=== PATIENT | male | born 1990 | race Caucasian/White ===

== ENCOUNTER 2018-08-28 10:38 | Inpatient (IN) | payer BC, OTHER ==
[~2018-08-28] VITALS: Ht 162.6 cm; Wt 72.2 kg
[2018-08-28] MEDS ORDERED: MORPHINE SULFATE 4 MG/ML, 1ML ONE (10:59)
[2018-08-28] MEDS ORDERED: MORPHINE SULFATE 4 MG/ML, 1ML IVPush PRN (11:00)
[2018-08-28] MEDS ORDERED: SODIUM CHLORIDE FLUSH 10ML SYR IVF ONE (11:00)
[2018-08-28 11:18] LABS: ALANINE AMINOTRANSFERASE 186 U/L (12-78); ANION GAP 14 mmol/L (5-15); CALCIUM 9.1 mg/dL (8.5-10.1); CHLORIDE 100 mmol/L (98-107); CREATININE 0.93 mg/dL (0.7-1.3)
[2018-08-28 11:19] LABS: SALICYLATE LEVEL < 1.7 mg/dL (2.8-20.0)
[2018-08-28 11:20] LABS: ALKALINE PHOSPHATASE 82 U/L (45-117); BILIRUBIN,TOTAL 1.8 mg/dL (0.2-1.0)
[2018-08-28] MEDS ORDERED: PLEASE ENTER ALLERGIES MC SCH (11:30)
[2018-08-28 11:39] LABS: BASOPHILS # (AUTO) 0.03 x10^3/uL (0-0.1); BASOPHILS % (AUTO) 0 % (0-1); EOSINOPHILS # (AUTO) 0.07 x10^3/uL (0-0.4); EOSINOPHILS % (AUTO) 1 % (1-7); LYMPHOCYTES # (AUTO) 0.65 x10^3/uL (1-3.4); LYMPHOCYTES % (AUTO) 8 % (22-44); MD NO; MEAN CORPUSCULAR HEMOGLOBIN 32.9 pg (27.5-34.5); MEAN CORPUSCULAR HGB CONC 35.1 g/dL (33.2-36.2); MEAN CORPUSCULAR VOLUME 93.7 fL (81-97); MEAN PLATELET VOLUME 7.8 fL (7.4-10.4); MONOCYTES # (AUTO) 0.66 x10^3/uL (0.2-0.8); MONOCYTES % (AUTO) 8 % (2-9); NEUTROPHILS % (AUTO) 83 % (42-75); PLATELET COUNT 150 x10^3/uL (130-400); RED BLOOD COUNT 5.01 x10^6/uL (4.38-5.82); RED CELL DISTRIBUTION WIDTH 12.6 % (9.4-14.8)
[2018-08-28] MEDS: PLEASE ENTER HEIGHT AND WEIGHT MC SCH ×2 (12:21→12:22)
[2018-08-28] MEDS ORDERED: AMLO5TAB7 PO (12:23)
[2018-08-28] MEDS ORDERED: ETOMIDATE 20 MG/10 ML IV ONE (12:30)
[2018-08-28] MEDS ORDERED: ETOMIDATE 20 MG/10 ML ONE (12:56)
[2018-08-28] MEDS ORDERED: LORazepam 2 MG/ML, 1ML ONE (13:08)
[2018-08-28] MEDS ORDERED: THIAMINE 100 MG/ML, 2ML IM ONE (13:30)
[2018-08-28] MEDS ORDERED: LORazepam 2 MG/ML, 1ML IVPush ONE (13:30)
[2018-08-28] MEDS ORDERED: THIAMINE 100 MG/ML, 2ML ONE (13:36)
[2018-08-28] MEDS: SODIUM CHLORIDE 0.9% 1,000 ML IV SCH (14:13)
[2018-08-28] MEDS ORDERED: LORazepam 1MG TABLET PO PRN ×3 (14:30)
[2018-08-28] MEDS ORDERED: ONDANSETRON 2MG/ML, 2ML IVPush PRN (14:30)
[2018-08-28] MEDS ORDERED: LORazepam 2 MG/ML, 1ML IV PRN ×4 (14:30)
[2018-08-28] MEDS ORDERED: ONDANSETRON ODT 4 MG PO PRN (14:30)
[2018-08-28] MEDS ORDERED: LORazepam 0.5MG TABLET PO PRN (14:30)
[2018-08-28 15:00] VITALS: BP 134/94
[2018-08-28 15:50] LABS: HEMOGLOBIN A1C 5.5 % (4.2-6.3)
[2018-08-28] MEDS: POTASSIUM CHLORIDE 20 MEQ, MAGNESIUM SULFATE 1 GM, THIAMINE 200 MG, FOLIC ACID 1 MG, MV... IV SCH (16:12)
[2018-08-28] MEDS: HEPARIN 5,000 UNITS/ML, 1ML SQ SCH (16:13)
[2018-08-28] MEDS: IBUPROFEN 600 MG TABLET PO PRN ×2 (16:33→22:34)
[2018-08-28] MEDS ORDERED: GADOBUTROL 7.5 MMOL/7.5 ML PFS ONE (17:28)
[2018-08-28 17:43] LABS: AMPHETAMINE SCREEN, URINE Negative (Negative); BARBITURATE SCREEN, URINE Negative (Negative); BENZODIAZEPINE SCREEN, URINE Negative (Negative); CANNABINOID SCREEN, URINE Negative (Negative); COCAINE SCREEN, URINE Negative (Negative); METHADONE SCREEN, URINE Negative (Negative); OPIATE SCREEN, URINE Positive (Negative)
[2018-08-28] MEDS: LIDODERM 5% PATCH TD PRN (18:07)
[2018-08-28 20:03] VITALS: BP 141/88
[2018-08-28] MEDS: METHOCARBAMOL 500 MG TABLET PO PRN (21:56)
[2018-08-29] MEDS: HEPARIN 5,000 UNITS/ML, 1ML SQ SCH ×3 (01:08→17:27)
[2018-08-29 01:22] VITALS: BP_SYST 135; BP_SYST 152; BP_DIAS 70; BP_DIAS 90
[2018-08-29] MEDS: SODIUM CHLORIDE 0.9% 1,000 ML IV SCH ×2 (04:00→17:20)
[2018-08-29] MEDS: METHOCARBAMOL 500 MG TABLET PO PRN ×2 (06:07→14:12)
[2018-08-29] MEDS: IBUPROFEN 600 MG TABLET PO PRN ×3 (06:07→21:45)
[2018-08-29 06:08] LABS: ALBUMIN 3.1 g/dL (3.4-5.0); ANION GAP 9 mmol/L (5-15); CALCIUM 8.2 mg/dL (8.5-10.1); CHLORIDE 108 mmol/L (98-107)
[2018-08-29 06:09] LABS: BASOPHILS # (AUTO) 0.02 x10^3/uL (0-0.1); BASOPHILS % (AUTO) 0 % (0-1); EOSINOPHILS % (AUTO) 1 % (1-7); LYMPHOCYTES # (AUTO) 1.17 x10^3/uL (1-3.4); LYMPHOCYTES % (AUTO) 16 % (22-44); MD NO; MEAN CORPUSCULAR HEMOGLOBIN 32.8 pg (27.5-34.5); MEAN CORPUSCULAR HGB CONC 34.7 g/dL (33.2-36.2); MEAN CORPUSCULAR VOLUME 94.4 fL (81-97); MEAN PLATELET VOLUME 8.4 fL (7.4-10.4); MONOCYTES # (AUTO) 0.64 x10^3/uL (0.2-0.8); MONOCYTES % (AUTO) 9 % (2-9); NEUTROPHILS # (AUTO) 5.32 x10^3/uL (1.8-6.8); NEUTROPHILS % (AUTO) 73 % (42-75); PLATELET COUNT 119 x10^3/uL (130-400); RED BLOOD COUNT 3.87 x10^6/uL (4.38-5.82); RED CELL DISTRIBUTION WIDTH 12.7 % (9.4-14.8)
[2018-08-29 06:21] LABS: ALANINE AMINOTRANSFERASE 114 U/L (12-78); ALKALINE PHOSPHATASE 60 U/L (45-117); BILIRUBIN,TOTAL 1.8 mg/dL (0.2-1.0); CREATININE 0.63 mg/dL (0.7-1.3); TOTAL PROTEIN 6.1 g/dL (6.4-8.2)
[2018-08-29 07:19] VITALS: BP 155/98
[2018-08-29] MEDS: ACETAMINOPHEN 325 MG TABLET PO PRN ×2 (10:04→17:26)
[2018-08-29] MEDS: AMLODIPINE 5 MG TABLET PO SCH (10:04)
[2018-08-29 12:18] VITALS: BP 142/97
[2018-08-29] MEDS: LIDODERM 5% PATCH TD PRN (17:26)
[2018-08-29] MEDS: POTASSIUM CHLORIDE 20 MEQ, MAGNESIUM SULFATE 1 GM, THIAMINE 200 MG, FOLIC ACID 1 MG, MV... IV SCH (17:27)
[2018-08-29 20:00] VITALS: BP 156/98
[2018-08-30] MEDS: HEPARIN 5,000 UNITS/ML, 1ML SQ SCH ×2 (02:08→09:06)
[2018-08-30] MEDS: SODIUM CHLORIDE 0.9% 1,000 ML IV SCH (02:08)
[2018-08-30 02:33] VITALS: BP 144/94
[2018-08-30 05:52] LABS: ALBUMIN 3.2 g/dL (3.4-5.0); ANION GAP 7 mmol/L (5-15); CALCIUM 8.4 mg/dL (8.5-10.1); CHLORIDE 107 mmol/L (98-107)
[2018-08-30 05:56] LABS: ALANINE AMINOTRANSFERASE 106 U/L (12-78); ALKALINE PHOSPHATASE 65 U/L (45-117); BILIRUBIN,TOTAL 1.1 mg/dL (0.2-1.0); CREATININE 0.56 mg/dL (0.7-1.3); TOTAL PROTEIN 6.6 g/dL (6.4-8.2)
[2018-08-30 06:58] VITALS: BP 150/95
[2018-08-30 08:19] LABS: LDL/HDL RATIO 0.8 (0.5-3.0)
[2018-08-30] MEDS: AMLODIPINE 5 MG TABLET PO SCH (09:06)
[2018-08-30] MEDS: IBUPROFEN 600 MG TABLET PO PRN (09:57)
[2018-08-30] MEDS ORDERED: METH500T97 PO (10:23)
[2018-08-30] MEDS ORDERED: IBUP-1222 PO (10:23)
[2018-08-30] MEDS ORDERED: AMLO5TAB7 PO (10:23)
== END 2018-08-30 11:20 | disposition home or self-care (01) | DRG 563 ==
LOC: ED 13:59 → EDIP 14:00 → ED 14:08 → 4EST 15:37 → DCLOUNGE 08-30 11:06
PROVIDERS: ADMIT Family Medicine; ATTEND Family Medicine
PROC: 0PSCXZZ Reposition Right Humeral Head, External Approach (ICD-10-PCS; principal; 2018-08-28)
DX: S42.291A Other displaced fracture of upper end of right humerus, initial encounter for closed fracture (principal); F10.239 Alcohol dependence with withdrawal, unspecified; E87.1 Hypo-osmolality and hyponatremia; I10 Essential (primary) hypertension; R73.9 Hyperglycemia, unspecified; W18.39XA Other fall on same level, initial encounter; S43.014A Anterior dislocation of right humerus, initial encounter; Y93.89 Activity, other specified; Y92.89 Other specified places as the place of occurrence of the external cause; Y99.8 Other external cause status
CPT/HCPCS: 23650; 36415; 70450; 70553; 80053; 80061; 80307; 80329; 82962; 83036; 83735; 84100; 84443; 85025; 93005; 95819; 96372; 96374; 96375; 99285; A9585; G0378; J1644; J3411; J3475; J3480; G0480; J2060; J7030

== ENCOUNTER 2018-09-05 13:25 | Observation (INO) | payer BC ==
[~2018-09-05] VITALS: Ht 165.1 cm; Wt 69.2 kg
[~2018-09-05 13:25] MED LIST: AMLO5TAB7 PO; IBUP-1222 PO; METH500T97 PO
[2018-09-05] MEDS ORDERED: FENTANYL PF 250 MCG/5ML ONE (13:32)
[2018-09-05] MEDS ORDERED: MIDAZOLAM 1 MG/ML, 2ML ONE (13:32)
[2018-09-05] MEDS ORDERED: NEOSTIGMINE 1 MG/ML, 10ML ONE (13:33)
[2018-09-05] MEDS ORDERED: PROPOFOL 10 MG/ML, 20ML ONE (13:33)
[2018-09-05] MEDS ORDERED: CEFAZOLIN 1,000 MG ONE ×3 (13:33→13:34)
[2018-09-05] MEDS ORDERED: ROCURONIUM 10MG/ML,5ML ONE (13:33)
[2018-09-05] MEDS ORDERED: GLYCOPYRROLATE 0.2MG/1ML, 5ML ONE (13:33)
[2018-09-05] MEDS ORDERED: DEXAMETHASONE 4 MG/ML, 1ML ONE (13:33)
[2018-09-05] MEDS ORDERED: ONDANSETRON 2MG/ML, 2ML ONE (13:33)
[2018-09-05] MEDS ORDERED: SODIUM CHLORIDE 0.9% PF 10ML ONE (13:34)
[2018-09-05] MEDS ORDERED: ROPIvacaine/PF 0.5%, 30 ML ONE (13:35)
[2018-09-05] MEDS ORDERED: LACTATED RINGERS 1,000 ML IV SCH ×2 (14:10→18:00)
[2018-09-05 14:19] VITALS: BP 144/91
[2018-09-05] MEDS ORDERED: ACETAMINOPHEN 500 MG TABLET PO ONE (14:30)
[2018-09-05] MEDS ORDERED: ONDANSETRON 2MG/ML, 2ML IV PRN ×2 (14:30→18:00)
[2018-09-05] MEDS ORDERED: AMLO10TA6 PO (14:30)
[2018-09-05] MEDS ORDERED: GABAPENTIN 300 MG CAPSULE PO ONE (14:30)
[2018-09-05] MEDS ORDERED: ONDANSETRON ODT 8 MG PO PRN (14:30)
[2018-09-05] MEDS ORDERED: HYDROmorphone 1 MG/ML, 1ML IV PRN (14:30)
[2018-09-05] MEDS ORDERED: PROMETHAZINE 25 MG/ML, 1ML IV PRN (14:30)
[2018-09-05] MEDS ORDERED: PROMETHAZINE 12.5 MG SUPP PR PRN (14:30)
[2018-09-05] MEDS ORDERED: PROMETHAZINE 25 MG SUPP PR PRN (14:30)
[2018-09-05] MEDS ORDERED: hydrALAzine 20 MG/ML, 1ML IV PRN (14:30)
[2018-09-05] MEDS ORDERED: PROMETHAZINE 25 MG/ML, 1ML IM PRN ×2 (14:30)
[2018-09-05] MEDS ORDERED: OXYcodone 5 MG/5 ML ORAL.SOL UDC PO PRN (14:30)
[2018-09-05] MEDS ORDERED: FENTANYL PF 100 MCG/2ML IV PRN (14:30)
[2018-09-05] MEDS ORDERED: MORPHINE SULFATE 4 MG/ML, 1ML IVPush PRN (14:30)
[2018-09-05] MEDS ORDERED: LABETALOL 5MG/ML, 20ML IV PRN (14:30)
[2018-09-05] MEDS ORDERED: CLINDAMYCIN 150 MG/ML, 6ML ONE (14:34)
[2018-09-05] MEDS ORDERED: NEOSPORIN OINT, 15GM ONE (15:49)
[2018-09-05] MEDS ORDERED: MEPERIDINE/PF 50 MG/ML ONE (16:26)
[2018-09-05] MEDS: MEPERIDINE/PF 25MG/0.5ML IVPush PRN ×2 (16:29→16:53)
[2018-09-05] MEDS: LACTATED RINGERS 1,000 ML IV SCH (18:00)
[2018-09-05] MEDS: KETOROLAC 30 MG/1 ML IV SCH (18:56)
[2018-09-05 20:04] VITALS: BP 113/83
[2018-09-05] MEDS: HYDROcodone/APAP 7.5-325MG/15ML UDC PO PRN (22:44)
[2018-09-05] MEDS: MORPHINE SULFATE 4 MG/ML, 1ML IVPush PRN (23:53)
[2018-09-06] MEDS: KETOROLAC 30 MG/1 ML IV SCH ×2 (02:04→09:46)
[2018-09-06 02:06] VITALS: BP 130/83
[2018-09-06] MEDS: MORPHINE SULFATE 4 MG/ML, 1ML IVPush PRN ×2 (03:01→06:29)
[2018-09-06] MEDS: HYDROcodone/APAP 7.5-325MG/15ML UDC PO PRN ×3 (03:54→12:12)
[2018-09-06] MEDS: LACTATED RINGERS 1,000 ML IV SCH (07:22)
[2018-09-06 07:50] VITALS: BP 125/78
[2018-09-06] MEDS ORDERED: AMLODIPINE 10 MG TAB PO SCH (09:00)
[2018-09-06 12:26] VITALS: BP 122/78
[2018-09-06] MEDS ORDERED: CELE200C PO (12:48)
[2018-09-06] MEDS ORDERED: HYDR-3307 PO (12:48)
== END 2018-09-06 13:48 | disposition home or self-care (01) ==
LOC: OR 13:25 → 4NOR 17:41 → OR 23:05 → 4NOR 23:05 → DCLOUNGE 09-06 13:35
PROVIDERS: ADMIT Orthopaedic Surgery; ATTEND Orthopaedic Surgery
DX: S42.251A Displaced fracture of greater tuberosity of right humerus, initial encounter for closed fracture (principal); X58.XXXA Exposure to other specified factors, initial encounter
CPT/HCPCS: 23630; 73060; 76001; 96374; 96375; 96376; C1713; G0378; J0690; J1100; J1885; J2175; J2250; J2405; J2704; J2710; J2795; J3010; J3490; J7120; S0077